=== PATIENT | male | born 1940 | race Caucasian/White ===

== ENCOUNTER 2022-03-08 11:58 | Day surgery (SDCO) | payer OTHER ==
[~2022-03-08] VITALS: Ht 182.9 cm; Wt 101.2 kg
[2022-03-08 12:59] LABS: BASOPHIL 0.8 % (0-2); EOSINOPHIL 3.9 % (0-7); HCT 47.3 % (42.0-52.0); HGB 13.6 g/dl (13.2-18.0); LYMPHOCYTE 13.7 % (15-48); MCH 29.2 pg (25.0-31.0); MCHC 28.8 g/dL (32.0-36.0); MCV 101.5 fL (78.0-100.0); MPV 11.6 fL (6.0-9.5); NEUTROPHIL 74.2 % (41-80); NRBC 0; PLT 164 K/uL (150-400); RBC 4.66 M/uL (4.70-6.00); RDW 15.6 % (11.5-14.0); WBC 4.9 K/uL (4.0-10.5)
[2022-03-08 13:17] LABS: BUN/CREAT RATIO (CALC) 20.5 RATIO; CREATININE 0.83 mg/dL (0.67-1.17); POTASSIUM 3.6 mmol/L (3.5-5.1)
[2022-03-08] MEDS ORDERED: DICLOFENAC SOD100 G1 TOP (23:06)
[2022-03-08] MEDS ORDERED: FINASTERIDE5 MG PO (23:07)
[2022-03-08] MEDS ORDERED: ENULOSE10 GM/15 M PO (23:11)
[2022-03-08] MEDS ORDERED: LIDOCAINE 5% P1 EACH TOP (23:12)
[2022-03-08] MEDS ORDERED: METOPROLOL SUCC50 MG PO (23:14)
[2022-03-08] MEDS ORDERED: PEG3350510 GM PO (23:15)
[2022-03-08] MEDS ORDERED: SENNA8.6 MG PO (23:16)
[2022-03-08] MEDS ORDERED: ZESTRIL5 MG PO (23:19)
[2022-03-08] MEDS ORDERED: ARICEPT 5MG TABL5 MG PO (23:19)
[2022-03-08] MEDS ORDERED: ELIQUIS5 MG PO (23:20)
[2022-03-08] MEDS ORDERED: VITAMIN D325 MC1 PO (23:26)
[2022-03-08] MEDS ORDERED: VENTOLIN HFA IN18 GM INH (23:27)
[2022-03-09 07:16] LABS: BASOPHIL 0.5 % (0-2); EOSINOPHIL 4.1 % (0-7); HCT 42.2 % (42.0-52.0); HGB 12.6 g/dl (13.2-18.0); MCH 28.4 pg (25.0-31.0); MCHC 29.9 g/dL (32.0-36.0); MONOCYTE 7.2 % (0-12); MPV 11.7 fL (6.0-9.5); NEUTROPHIL 75.9 % (41-80); NRBC 0; PLT 187 K/uL (150-400); RBC 4.43 M/uL (4.70-6.00); RDW 15.5 % (11.5-14.0); WBC 6.2 K/uL (4.0-10.5)
[2022-03-09 07:19] LABS: MCV 95.3 fL (78.0-100.0)
[2022-03-09 07:37] LABS: ALBUMIN 2.4 g/dL (3.4-5.0); BILIRUBIN - TOTAL 0.7 mg/dL (0.2-1.0); BUN/CREAT RATIO (CALC) 23.8 RATIO; CREATININE 0.8 mg/dL (0.67-1.17); GLOBULIN (CALCULATION) 3.4 g/dL; POTASSIUM 3.7 mmol/L (3.5-5.1); TOTAL PROTEIN 5.8 g/dL (6.4-8.2)
--- NOTE | 2022-03-09 14:29 | NUR ---
03/09 Mr. Moser was admitted from [facility]. They will accept back. He is private pay at [facility]. Family is considering Hospice or [facility]. He would be eligible to be consider for Hospice because his managed Medicare would convert to traditional Medicare. [facility] can also offer their Palliative Care program.
[2022-03-10 05:56] LABS: HCT 35.5 % (42.0-52.0); HGB 10.5 g/dl (13.2-18.0); MCH 28.8 pg (25.0-31.0); MCHC 29.6 g/dL (32.0-36.0); MCV 97.3 fL (78.0-100.0); MPV 11.2 fL (6.0-9.5); RBC 3.65 M/uL (4.70-6.00); RDW 15.3 % (11.5-14.0); WBC 6.1 K/uL (4.0-10.5)
[2022-03-10 07:00] LABS: CREATININE 0.81 mg/dL (0.67-1.17); POTASSIUM 5.1 mmol/L (3.5-5.1)
[2022-03-10 07:04] LABS: IRON % SATURATION 18.1 %SAT (20-50)
[2022-03-11] MEDS ORDERED: LORAZEPAM2 MG/1 M2 PO/SL (07:36)
[2022-03-11] MEDS ORDERED: MORPHINE 110 MG/0.5 SL (07:36)
--- NOTE | 2022-03-11 14:51 | NUR ---
03/11 Mr. Moser will return to [facility]. Hospice provided an educational visit with 2 of his sisters. Hospice will meet again with additional family members at [facility]. Hospice will admit once all family members are in agreement.
== END 2022-03-11 15:55 ==
LOC: FER 11:58 → FTCU 14:17 → FMS 03-10 19:21
PROVIDERS: Emergency Medicine; Family Medicine; Nurse Practitioner; ADMIT Internal Medicine
DX: J96.01 Acute respiratory failure with hypoxia (principal); J98.11 Atelectasis; J69.0 Pneumonitis due to inhalation of food and vomit; I11.0 Hypertensive heart disease with heart failure; I50.9 Heart failure, unspecified; I48.20 Chronic atrial fibrillation, unspecified; G30.9 Alzheimer's disease, unspecified; F02.80 Dementia in other diseases classified elsewhere, unspecified severity, without behavioral disturbance, psychotic disturbance, mood disturbance, and anxiety; D64.9 Anemia, unspecified; N40.0 Benign prostatic hyperplasia without lower urinary tract symptoms; F32.9 Major depressive disorder, single episode, unspecified; E87.2 Acidosis; E78.5 Hyperlipidemia, unspecified; K21.9 Gastro-esophageal reflux disease without esophagitis; E66.9 Obesity, unspecified; Z20.822 Contact with and (suspected) exposure to COVID-19; Z79.01 Long term (current) use of anticoagulants; Z79.899 Other long term (current) drug therapy; Z68.31 Body mass index [BMI] 31.0-31.9, adult
CPT/HCPCS: 36415; 36600; 71045; 71250; 80048; 80053; 82607; 82803; 83540; 83550; 83605; 83880; 84145; 84484; 85025; 87040; 93005; 94640; 94660; 94760; 94762; G0378; J0692; J1650; J1940; J3370; J3475; J7040; U0002